=== PATIENT | female | born 2000 | race Two or more races ===

== ENCOUNTER 2024-06-11 22:20 | Observation (INO) | payer MEDICAID, SELFPAY ==
[2024-06-11 22:35] VITALS: BP 117/70; PULSE 93
[2024-06-11 22:36] VITALS: BP 117/70; PULSE 93; RESP 16; RESP 99; TEMP 36.8
[2024-06-11 22:49] VITALS: BMI 36.9
[2024-06-11 23:17] LABS: ROM Kit Lot # 578010271; ROM Swab Mixed By: MARTB3; Rupture of Fetal Membranes Negative (Negative); Swb Mxed in Solvent 1 min? Yes
== END 2024-06-11 23:30 | disposition home or self-care (01) ==
PROVIDERS: Admitting Provider Specialist; Visit Provider Specialist
DX: Z34.83 Encounter for supervision of other normal pregnancy, third trimester (principal); Z3A.36 36 weeks gestation of pregnancy
CPT/HCPCS: 59025; 59899; 84112; G0378

== ENCOUNTER 2024-06-26 20:51 | Observation (INO) | payer MEDICAID, SELFPAY ==
[2024-06-26] VITALS (20 sets, daily range): BP systolic 106–121; BP diastolic 60–62; PULSE 77–100; RESP 18–100; TEMP 36.3; O2SAT 97–99; BMI 37.8
[2024-06-26 21:50] LABS: ROM Kit Lot # 578010271; ROM Swab Mixed By: GONZY; Rupture of Fetal Membranes Negative (Negative); Swb Mxed in Solvent 1 min? Yes
== END 2024-06-26 22:59 | disposition home or self-care (01) ==
LOC: S4SX 22:50 → S4NX 23:18
PROVIDERS: Admitting Provider Specialist; Visit Provider Specialist
DX: O26.893 Other specified pregnancy related conditions, third trimester (principal); Z3A.38 38 weeks gestation of pregnancy; R10.2 Pelvic and perineal pain
CPT/HCPCS: 59025; 59899; 84112

== ENCOUNTER 2024-06-29 17:37 | Inpatient (IN) | payer MEDICAID, SELFPAY ==
[2024-06-29] VITALS (9 sets, daily range): BP systolic 109–122; BP diastolic 60–72; PULSE 74–90; RESP 18; TEMP 36.7–36.9; BMI 37.5
--- NOTE | 2024-06-29 07:50 | ESHP_ITS ---
RE: TONIO YOUNG : 2000 DATE OF ADMISSION: 06/29/2024 HISTORY OF PRESENT ILLNESS: This is a 23-year-old 2, para 0-0-1-0 with intrauterine at 39 weeks on 06/30/2023. She was admitted for induction of labor for macrosomia at term. The patient's care was complicated by a left adnexal cyst measuring 10 x 11 cm that has been stable and unchanged in size throughout her . An US performed today shows 3957g. PAST MEDICAL HISTORY: Left adnexal cyst, BMI 37, scoliosis, iron deficiency anemia, molar . ALLERGIES: No known drug allergies. MEDICATIONS: multivitamin 1 p.o. daily, ferrous sulfate 325 mg one p.o. b.i.d. SOCIAL HISTORY: She denies any alcohol, drug use, or smoking. OBSTETRIC HISTORY: 03/2023, spontaneous AB at 7 weeks gestation with D and C for molar . PAST SURGICAL HISTORY: D and C in 03/2023, spinal fusion at the age of 13. REVIEW OF SYSTEMS: She denies any headache, change in vision, or right upper quadrant pain. She denies any chest pain, palpitations, shortness of breath, or lower extremity pain. She has occasional contractions. She denies any leaking or bleeding. She reports normal movement. PHYSICAL EXAMINATION: VITAL SIGNS: Blood pressure is 115/69, heart rate 88, respirations 18, temperature 98.2, weight 222 pounds. HEENT: Oropharynx and sclerae are clear. LUNGS: Clear to auscultation bilaterally. HEART: Regular rate and rhythm. ABDOMEN: Gravid consistent with estimated weight 9lbs pounds. PELVIC: See RN notes. EXTREMITIES: Nontender. SKIN: No gross rashes or lesions. NEUROLOGIC: No focal deficit. ASSESSMENT AND PLAN: Intrauterine at 39 weeks on 06/30/2023, macrosomia, induction of labor, anticipate spontaneous vaginal delivery. Informed consent was obtained. The patient was made aware of the risks, complications, alternatives, and benefits of operative vaginal delivery and delivery. He agrees with these modes of delivery if indicated. DT: 06:26:09 TT: 07:11:00 Ref: [id number] - TID: [id number] MTDD
[2024-06-29 18:30] LABS: Basophils % (Auto) 0 % (0-2.5); Eosinophils % (Auto) 0 % (0-10); Hematocrit 33.5 % (36.0-46.0); Hemoglobin 10.5 g/dL (12.0-16.0); Immature Granulocytes % (Auto) 0 % (0-0); Immature Granulocytes Auto 0.03 Thou/mm3 (0.00-0.00); Lymphocytes # (Auto) 1.5 Thou/mm3 (1.0-4.8); Lymphocytes % (Auto) 18 % (10-50); Mean Corpuscular HGB Conc 31.3 g/dl (31.0-37.0); Mean Corpuscular Hemoglobin 23.7 pg (25.0-35.0); Mean Corpuscular Volume 76 fL (80-100); Monocytes # (Auto) 0.7 Thou/mm3 (0.0-0.8); Monocytes % (Auto) 8 % (0-12); Neutrophils # (Auto) 6.2 Thou/mm3 (1.8-7.7); Neutrophils % (Auto) 74 % (37-80); Nucleated Red Blood Cell % 0 /100 WBC (0); Platelet Count 209 Thou/mm3 (140-440); RDW Standard Deviation 46.5 fL (36.4-46.3); Red Blood Count 4.43 Miln/mm3 (4.00-5.20); White Blood Count 8.4 Thou/mm3 (3.6-11.0)
[2024-06-29 19:06] LABS: Syphilis Nonreactive (Nonreactive)
--- NOTE | 2024-06-29 19:11 | XR_ITS ---
Examination: Complete OB ultrasound greater than 14 weeks Date and time of exam: June 29, 2024 1943 hours INDICATIONS: Unknown presentation unknown weight Findings: Viable intrauterine single fetus with single amniotic sac presentation cephalic Cardiac motion 143 BPM Placenta fundal grade 3 Umbilical cord insertion 3 vessel seen Amniotic fluid index 14.3 cm spine maternal right Cervix 4.3 cm Right ovary obscured by bowel gas Left ovary 13.8 cm arterial flow, 13 x 10.6 cm left ovarian cyst. Composite estimated gestational age based on BPD, head circumference, abdominal circumference, femur length is 39 weeks 4 days, weight 3956.5 g. Survey of intracranial anatomy, spinal anatomy, abdominal anatomy, four-chamber heart performed with no abnormalities identified. Impression: Viable intrauterine gestation in cephalic presentation Estimated gestational age 39 weeks 4 days Estimated weight 3956.5 g Large left ovarian simple cyst.
[2024-06-29] MEDS: MISOPROSTOL 50 mCg TABLET PO (21:02)
[2024-06-30] VITALS (145 sets, daily range): BP systolic 91–125; BP diastolic 50–78; PULSE 60–96; RESP 18; TEMP 36.7–36.8; O2SAT 91–100
[2024-06-30] MEDS: MISOPROSTOL 50 mCg TABLET PO ×3 (01:06→10:46)
--- NOTE | 2024-06-30 08:43 | PD.LDPN ---
Documentation for date of: 06/30/24 OB Labor Progress Note Pain Control Pain control: tolerating well Assessment and Plan Comments: Taken over care from on-call physician overnight Continue current plan. Oxytocin when Waldrop score is favorable. Continue continuous maternal monitoring. Anticipate vaginal delivery
[2024-06-30] MEDS: OXYTOCIN in NS 30 units 30 UNIT/500 ML BAG IV (16:45)
[2024-06-30] MEDS: RINGERS LACTATED 1000 ML 1,000 ML 100 ML IV (21:23)
[2024-07-01] VITALS (156 sets, daily range): BP systolic 83–147; BP diastolic 46–83; PULSE 61–157; RESP 16–24; TEMP 36.4–37.2; O2SAT 73–100
[2024-07-01] MEDS: fentaNYL CIT INJ 50 mCg/ML AMP 2ML 100 MCG IV (02:25)
--- NOTE | 2024-07-01 08:09 | PD.LDPN ---
Documentation for date of: 07/01/24 OB Labor Progress Note Pain Control Comments: Epidrual Pelvic Exam Dilation (cm): 10 Effacement (%): 100 station: +1 Amniotic membrane status: Ruptured Contractions Contraction frequency: q3m Status status: Category ll Assessment and Plan Pitocin rate (mU/min): 7 Comments: Anticipate Discussed risks of shoulder dystocia with delivery of 3950g fetus and that she has the right to request a C/S at anytime. She is aware that the ultrasound can overestimate or underestimate the weight of her baby and that baby could be 8-10 lbs. Patient desires to attempt a vaginal delivery. She is aware that if a SD is encountered the baby could sustain a permanent or life threatening neurologic injury that could limit movement of the extremities and in extreme cases brain injury and .
[2024-07-01] MEDS: MINERAL OIL 30 ML UDC TOP (08:57)
[2024-07-01] MEDS: BENZO/LANO/ALOE (Dermoplast) 60 GM CAN 1 SPRAY TOP (08:57)
[2024-07-01] MEDS: OXYTOCIN in NS 20 units 20 UNIT/1,000 ML BAG 125 UNIT IV ×2 (08:59→15:46)
--- NOTE | 2024-07-01 09:20 | ESDS_ITS ---
DS: Providers Provider Date of admission: 06/29/24 17:37 Primary care physician: Physician No Primary/Family Admitting Provider: Koko Crystal MD Attending Provider on Admission: Walter Mike MD Attending Provider on DC: Koko Crystal MD Discharging Provider: Koko Crystal MD DS: Diagnosis Problem List Completed Was Problem List Reviewed/Reconciled?: Yes Summary/Hosp Course Brief History: Induction for 39w1d with suspected macrosomia. Cytotec x 4. Pitocin to 7 miu. Epidural. Peripartum Data Delivery Method: Normal Vaginal Delivery Episiotomy Description: None Laceration Description: yes and see Delivery Summary [place] 1: Gender: Male Disposition of : home Time Spent with Patient Time attestation: Total time spent providing and/or coordinating discharge services: Exam Vital Signs Temp Pulse Resp BP Pulse Ox 98.2 F 81 18 110/65 97 07/01/24 07:02 07/01/24 09:17 07/01/24 07:02 07/01/24 09:17 07/01/24 08:42 Discharge Plan Plan Patient Disposition: HOME (Self Care) Patient condition on transfer: Stable Prescriptions/Referrals Prescriptions/Med Rec: New ibuprofen 600 mg tablet 600 mg PO Q6H PRN (Reason: pain) Qty: 30 0RF docusate sodium 100 mg Capsule 100 mg PO QDAY PRN (Reason: Constipation) 30 Days Qty: 30 0RF No Action [id number] 40-1 mg tablet,chewable 1 tab PO DAILY Referrals: Koko Crystal MD [Physician] - No Primary/Family,Physician [Primary Care Provider] - Patient/Caregiver Discharge Instructions Discharge Activity: activity as tolerated Other Discharge Activity Instructions:: Follow up office 6 weeks. Education Materials: After a Vaginal , After Delivery Concerns, Breast Care After , Incision Care After Vaginal , Nutrition While , Understanding Depression, : Caring for Yourself, Feel Healthy After, Hemorrhage Print Language: Surinamese Stand Alone Forms: Missy Award Info., Patient Portal Info Letter, DC from Surgery Discharge Order Discharge Orders: Discharge (Routine); Ordered 07/03/24 Ordered By: Walter Mike Planned Discharge Date 07/02/24
--- NOTE | 2024-07-01 09:22 | PD.LDDELS ---
Data ([place]) Data Hx Section: No : 2 Para: 0 Term: 0 : 0 : 1 Delivery Data ([place]) Labor Data ROM Date: 07/01/24 ROM Time: 01:55 Rupture Type: SROM Amniotic Fluid: Clear Delivery Data EDC: 07/06/24 EDC calculated by:: LMP/early US confirmation Labor Onset Stage 1 Date: 07/01/24 Labor Onset Stage 1 Time: 04:25 Labor Onset Stage 2 Date: 07/01/24 Labor Onset Stage 2 Time: 07:42 Delivery Date: 07/01/24 Delivery Time: 08:43 Gestational age (weeks): 39 Gestational age (days): 2 Placenta Delivery Date: 07/01/24 Placenta Delivery Time: 08:49 Delivered by: Koko Crystal Delivery nurse: Anila Grayson Other staff at delivery: 2nd Nurse Other staff at delivery: Nursery Nurse Other staff at delivery: 2nd Nurse Other staff at delivery: 2nd Nurse Other staff at delivery: Daylin Hernandez Other staff at delivery: Brittany Wood Other staff at delivery: Margarette Casas Other staff at delivery: AstoaCatherine Delivery Method Delivery: Vaginal Delivery Type: Spontaneous Presentation: Vertex Position: OA Anesthesia Type Primary Anesthesia: Epidural Placenta Placenta Delivery: Spontaneous Placenta Cultures Obtained: No Placenta Sent for Examination: No Cord Sample: Cord Blood Obtained Lacerations #1: Perineal: 2nd degree Perineal repair Sutures used for repair: 3.0 Chromic Umbilical Cord Nuchal Cord: None Data ([place]) Data Gender: Male Infant Weight Grams: 3865 1 Minute Total: 8 5 Minute Total: 9
[2024-07-01] MEDS: IBUPROFEN TAB 400 MG TABLET 800 MG PO ×2 (09:32→18:34)
[2024-07-01 13:51] LABS: Basophils % (Auto) 0 % (0-2.5); Eosinophils % (Auto) 0 % (0-10); Hematocrit 31.3 % (36.0-46.0); Hemoglobin 9.9 g/dL (12.0-16.0); Immature Granulocytes % (Auto) 1 % (0-0); Immature Granulocytes Auto 0.06 Thou/mm3 (0.00-0.00); Lymphocytes % (Auto) 8 % (10-50); Mean Corpuscular HGB Conc 31.6 g/dl (31.0-37.0); Mean Corpuscular Hemoglobin 23.6 pg (25.0-35.0); Mean Corpuscular Volume 75 fL (80-100); Monocytes # (Auto) 1.1 Thou/mm3 (0.0-0.8); Monocytes % (Auto) 9 % (0-12); Neutrophils # (Auto) 10.3 Thou/mm3 (1.8-7.7); Neutrophils % (Auto) 83 % (37-80); Nucleated Red Blood Cell % 0 /100 WBC (0); Platelet Count 208 Thou/mm3 (140-440); RDW Standard Deviation 45.6 fL (36.4-46.3); Red Blood Count 4.19 Miln/mm3 (4.00-5.20); White Blood Count 12.5 Thou/mm3 (3.6-11.0)
--- NOTE | 2024-07-01 15:16 | PC.NURSE ---
Bonilla WAGNER called to update RN at bedside with patient, RN called to room due to patient near-syncopal episode in bathroom, patient currently in bed IV has been placed with IV pitocin running wide open, IM pitocin given, charge nurse Rupinder currently doing manual extraction of clots. Orders received to place 2nd IV, type and cross 2 units of blood on hold, give IM methergine, TXA, 1L bolus, Cytotec DC. Bonilla WAGNER will come to bedside
[2024-07-01] MEDS: METHYLERGONOVINE INJ 0.2 MG/ML VIAL IM (15:22)
--- NOTE | 2024-07-01 15:26 | PC.NURSE ---
Geiling DO at bedside, manual extraction of clots performed, several large clots removed. Called for Bakri placement in OR, charge nurse notified
[2024-07-01] MEDS: OXYTOCIN INJ 10 UNIT/ML VIAL IM (15:41)
[2024-07-01] MEDS: MISOPROSTOL 200 mCg TABLET 800 MCG PR (15:44)
[2024-07-01] MEDS: TRANEXAMIC ACID 1,000 MG IVPB 1,000 MG/100 ML BAG 200 MG IV (15:45)
[2024-07-01] MEDS: RINGERS LACTATED 1000 ML 1,000 ML 100 ML IV (15:47)
--- NOTE | 2024-07-01 16:02 | ESPR_ITS ---
Subjective Subjective Interval history: Called to evaluate patient for hemorrhage. Patient was taking a shower and she started having excessive vaginal bleeding. She she got out of the shower and was found to be hypotensive and tachycardic with 800 cc of blood loss. Exam Vital Signs Temp Pulse Resp BP Pulse Ox O2 Del Method 97.5 F 96 16 96/67 97 Room Air 07/01/24 13:33 07/01/24 15:22 07/01/24 13:33 07/01/24 15:22 07/01/24 08:42 07/01/24 13:33 Routine Abdominal Exam Comments: Uterus is atonic Multiple clots evacuated from the uterine cavity Persistent ongoing vaginal bleeding Objective Labs 07/01/24 13:40 Labs: Laboratory Results - last 24 hr 06/29/24 07/01/24 18:07 13:40 WBC 12.5 H D RBC 4.19 Hgb 9.9 L Hct 31.3 L MCV 75 L MCH 23.6 L MCHC 31.6 RDW Std Deviation 45.6 Plt Count 208 Neut % (Auto) 83 H Lymph % (Auto) 8 L [place] % (Auto) 9 Eos % (Auto) 0 Baso % (Auto) 0 Neut # (Auto) 10.3 H Lymph # (Auto) 1.0 [place] # (Auto) 1.1 H Eos # (Auto) 0.0 Baso # (Auto) 0.0 Immature Gran # (Auto) 0.06 H Absolute Nucleated RBC 0.00 Immature Gran % 1 H Nucleated RBC % 0 Crossmatch See Detail Assessment & Plan Problem List (1) hemorrhage: Status: Acute Assessment and plan: Persistent vaginal bleeding despite uterotonic's in the form of Pitocin, Methergine, Cytotec, TXA and Hemabate Emergent exam under anesthesia, uterine curettage and placement of Bakri balloon Type and cross for 2 units of packed red blood cells and transfuse Type and cross for 2 units of fresh frozen plasma (2) Uterine atony, , current hospitalization: Status: Acute Time Spent With Patient Time: Total time spent is greater than 50% in coordination of care (as documented) at patient's floor/unit and/or counseling patient:
--- NOTE | 2024-07-01 16:10 | PC.NURSE ---
late entry,(1445) RN at bedside patient called stating that when she was in the shower she noticed large clots on the floor of the shower and had trickles of blood running down her leg. Upon assessment in bed, fundal massage performed, slightly boggy but firmed with massage. Three medium sized clots expelled, when I pressed on the patient's bladder she stated that she did feel as if she needed to void. I assisted the patient to the bathroom, when she sat on the toilet large clots were expelled into the urine hat along with free glowing blood. patient then reported feeling dizzy and stated I feel like im going to faint . RN pulled emergency button for assistance. team came immediately, blood pressure was taken while patient was sitting noted at 66/53, patient was still alert, given an alcohol pad to smell and coached by RN to keep her eyes open and to focus on my voice. patient was assisted to wheelchair and assisted back to bed, still alert and oriented. BP cycled every 10 minutes. Second fundal massage done, small clots expelled with free flowing blood. Multiple RNs at bedside, hemorrhage cart pulled to the bedside. Two IV started, 18G in right forearm, 20G started in the left forearm. 20 units of pitocin in 1 liter started and opened wide, 10 units of pitocin given in left thigh IM. Dr. Jose Manuel Crystal notified and order given to start TXA, give Cytotec 800mg per rectum and Methergine 0.2 Im. TXA hung and free flowing into left IV, LR started opened free flowing on the right IV. Cytotec 800mg given per rectum, Methergine 0.2 given IM (see MAR). BPs improved SBP over 100. Dr. Crystal and Anesthesia at bedside to consent for Bakri, uterine exploration to be done in the OR. Main OR staff at beside, patient transferred to OR on bed in stable condition, alert and oriented.
--- NOTE | 2024-07-01 17:05 | ESOP_ITS ---
Operative Note - [employer] Procedure Date of procedure: 07/01/24 Procedure Performed: Exam under anesthesia Uterine curettage Placement of intrauterine Bakri balloon Indication: hemorrhage Persistent uterine atony despite uterotonic's Pre-Op diagnosis: hemorrhage Persistent uterine atony despite uterotonic's day #0 status post spontaneous vaginal delivery Post-Op diagnosis: hemorrhage Persistent uterine atony despite uterotonic's day #0 status post spontaneous vaginal delivery Anesthesia type: General Procedure description: After proper informed consent was obtained and the patient made aware of the risk complications alternatives and benefits of the proposed procedure she was taken to the operating room where spinal anesthesia was attempted but after 15 minutes of attempting with no success recommendation was to proceed with general anesthesia. The patient was placed in the supine position on the operating room table. She underwent induction of general anesthesia. She is placed in dorsolithotomy position. She was prepped and draped you sterile fashion. She underwent exam under anesthesia. A bivalve speculum was placed in the vagina. A grasper was used to grasp the anterior lip of the cervix. A banjo curette was then utilized to curette the uterine cavity. No products of conception were obtained. The Bakri balloon was placed in the uterine cavity. The balloon was inflated with 500 cc of normal saline. Her uterus was firm at the umbilicus. There was no bleeding around the balloon. The vagina and perineum were inspected and were intact with no lacerations or disruptions of the prior sutures that were placed to repair the second-degree perineal laceration. She was reversed from general anesthesia in the supine position and transferred to the recovery room in stable condition. I discussed with the patient's family the nature of her condition and the intraoperative findings the expectation for recovery all questions answered. Fluids: crystalloid and blood Specimen: none Implants: Bakri Balloon Estimated blood loss (ml): 400 Findings: Atonic uterus with fundus 2 cm above the umbilicus, mobile and boggy, blood clots in the uterine cavity. No retained products of conception. No cervical or vaginal lacerations. Complications: none Surgical staff PALAK Carrillo CRNA Diagnosis Problem List Completed Was Problem List Reviewed/Reconciled?: Yes
[2024-07-01] MEDS: HYDROcodone/APAP 5/325 TABLET 1 TAB PO (18:34)
[2024-07-01 20:35] LABS: Fibrinogen 419 mg/dL (175-375); Partial Thromboplastin Time 30.1 Seconds (22.0-36.0)
[2024-07-01 20:40] LABS: Alanine Aminotransferase 8 U/L (10-49); Albumin, Serum 2.9 gm/dL (3.5-5.0); Albumin/Globulin Ratio 1.3 (1.2-2.2); Alkaline Phosphatase 145 U/L (46-116); Anion Gap 8 (7-16); Aspartate Amino Transferase 27 U/L (0-34); BUN/Creatinine Ratio 14 Ratio (12-20); Bilirubin,Total 0.5 mg/dL (0.3-1.2); Blood Urea Nitrogen 7 mg/dL (9-23); Calcium 8.2 mg/dL (8.3-10.6); Calcium (Corrected) 9.1 mg/dL (8.5-10.1); Carbon Dioxide 21.6 mMol/L (20.0-31.0); Chloride 111 mMol/L (98-107); Creatinine (Component) 0.5 mg/dL (0.6-1.3); Estimated Creatinine Clearance 209.5 mL/min (>60); Globulin 2.3 gm/dL (2.3-3.5); Glucose 101 mg/dL (74-106); Osmolality,Calculated 279 (275-295); Potassium 3.9 mMol/L (3.4-5.1); Sodium 141 mMol/L (136-145); Total Protein 5.2 gm/dL (5.7-8.2); eGFR > 60 See Note
[2024-07-02] VITALS (16 sets, daily range): BP systolic 95–116; BP diastolic 57–84; PULSE 61–79; RESP 16–22; TEMP 36.6–37.1; O2SAT 96–99
[2024-07-02] MEDS: HYDROcodone/APAP 5/325 TABLET 1 TAB PO (00:22)
[2024-07-02] MEDS: ceFAZolin/D5W 2 GM IV 2 GM/100 ML BAG IV ×3 (00:22→16:13)
[2024-07-02 05:29] LABS: Basophils % (Auto) 0 % (0-2.5); Eosinophils % (Auto) 0 % (0-10); Hematocrit 30.3 % (36.0-46.0); Hemoglobin 9.8 g/dL (12.0-16.0); Immature Granulocytes % (Auto) 1 % (0-0); Immature Granulocytes Auto 0.06 Thou/mm3 (0.00-0.00); Lymphocytes # (Auto) 2.5 Thou/mm3 (1.0-4.8); Lymphocytes % (Auto) 23 % (10-50); Mean Corpuscular HGB Conc 32.3 g/dl (31.0-37.0); Mean Corpuscular Hemoglobin 24.6 pg (25.0-35.0); Mean Corpuscular Volume 76 fL (80-100); Monocytes # (Auto) 0.9 Thou/mm3 (0.0-0.8); Monocytes % (Auto) 8 % (0-12); Neutrophils # (Auto) 7.5 Thou/mm3 (1.8-7.7); Neutrophils % (Auto) 68 % (37-80); Nucleated Red Blood Cell % 0 /100 WBC (0); Platelet Count 156 Thou/mm3 (140-440); RDW Standard Deviation 45.2 fL (36.4-46.3); Red Blood Count 3.99 Miln/mm3 (4.00-5.20)
[2024-07-02] MEDS: OXYTOCIN in NS 20 units 20 UNIT/1,000 ML BAG 125 UNIT IV (06:24)
[2024-07-02] MEDS: HYDROcodone/APAP 5/325 TABLET 2 TAB PO (07:13)
--- NOTE | 2024-07-02 08:17 | PD.LDPPPRG ---
Subjective Subjective Interval history: The patient is a 23-year-old -0-0-1 status post vaginal delivery the morning of 07/01/24. Dr Crystal delivered her. She did well all day until approximately 3:00 in the afternoon when she started hemorrhaging. Dr Crystal was called over took the patient to the OR for an exam under anesthesia, curettage, and placement of a Bakri balloon. The patient was transfused a total of 4 units of packed red blood cells and 2 units FFP. She is on Ancef. She has a Dimas catheter in place. The plan will be to keep the Bakri in until 1629. The patient's pain is controlled, she is tolerating a general diet and resting comfortably in bed this morning. Exam Vital Signs Temp Pulse Resp BP Pulse Ox O2 Del Method O2 Flow Rate 98.1 F 67 22 H 116/77 99 Room Air 6 07/02/24 07:31 07/02/24 07:31 07/02/24 07:31 07/02/24 07:31 07/02/24 07:31 07/02/24 07:31 07/01/24 18:00 Narrative Exam The patient is alert and oriented x 3 in no apparent distress resting comfortably in bed. Father baby is at bedside. Baby is asleep in [place] next to the bed Routine Abdominal Exam Abdominal: Present soft Comments: Fundus enlarged deviated to patient's right side Bakri in place. Bakri draining serosanguineous fluid. Objective Labs 07/02/24 04:45 07/01/24 19:59 Labs: Laboratory Results - last 24 hr 06/29/24 07/01/24 07/01/24 18:07 13:40 19:59 WBC 12.5 H D RBC 4.19 Hgb 9.9 L Hct 31.3 L MCV 75 L MCH 23.6 L MCHC 31.6 RDW Std Deviation 45.6 Plt Count 208 Neut % (Auto) 83 H Lymph % (Auto) 8 L [place] % (Auto) 9 Eos % (Auto) 0 Baso % (Auto) 0 Neut # (Auto) 10.3 H Lymph # (Auto) 1.0 [place] # (Auto) 1.1 H Eos # (Auto) 0.0 Baso # (Auto) 0.0 Immature Gran # (Auto) 0.06 H Absolute Nucleated RBC 0.00 Immature Gran % 1 H Nucleated RBC % 0 PT 11.0 INR 1.0 APTT 30.1 Fibrinogen 419 H Sodium 141 Potassium 3.9 Chloride 111 H Carbon Dioxide 21.6 Anion Gap 8 BUN 7 L Creatinine 0.5 L Estim Creat Clear Calc 209.5 eGFR > 60 BUN/Creatinine Ratio 14 Glucose 101 Calculated Osmolality 279 Calcium 8.2 L Corrected Calcium 9.1 Total Bilirubin 0.5 AST 27 ALT 8 L Alkaline Phosphatase 145 H Total Protein 5.2 L Albumin 2.9 L Globulin 2.3 Albumin/Globulin Ratio 1.3 Blood Type O Positive Antibody Screen NEGATIVE Crossmatch See Detail Blood Bank Wristband ID Yes Blood Bank Comment FFP Ready 07/02/24 04:45 WBC 11.0 RBC 3.99 L Hgb 9.8 L Hct 30.3 L MCV 76 L MCH 24.6 L MCHC 32.3 RDW Std Deviation 45.2 Plt Count 156 D Neut % (Auto) 68 Lymph % (Auto) 23 [place] % (Auto) 8 Eos % (Auto) 0 Baso % (Auto) 0 Neut # (Auto) 7.5 Lymph # (Auto) 2.5 [place] # (Auto) 0.9 H Eos # (Auto) 0.0 Baso # (Auto) 0.0 Immature Gran # (Auto) 0.06 H Absolute Nucleated RBC 0.00 Immature Gran % 1 H Nucleated RBC % 0 PT INR APTT Fibrinogen Sodium Potassium Chloride Carbon Dioxide Anion Gap BUN Creatinine Estim Creat Clear Calc eGFR BUN/Creatinine Ratio Glucose Calculated Osmolality Calcium Corrected Calcium Total Bilirubin AST ALT Alkaline Phosphatase Total Protein Albumin Globulin Albumin/Globulin Ratio Blood Type Antibody Screen Crossmatch Blood Bank Wristband ID Blood Bank Comment Assessment & Plan Problem List (1) hemorrhage: Problem details: Continue uterotonic's. Follow hemoglobin. Status: Acute Assessment and plan: Remove Bakri at 1630. DC Dimas catheter at the same time. Patient to ambulate. Monitor daily CBC. Patient has 2 units of packed red blood cells on hold but hemoglobin is stable at 9.8 today. Blood pressure and pulse are stable. (2) Uterine atony, , current hospitalization: Status: Acute (3) Term delivered: Status: Acute Assessment and plan: Patient is doing well. Encourage breast-feeding. consult as needed. Time Spent With Patient Time: Total time spent is greater than 50% in coordination of care (as documented) at patient's floor/unit and/or counseling patient: Time with patient: less than 15 minutes
[2024-07-02] MEDS: RINGERS LACTATED 1000 ML 1,000 ML 100 ML IV (14:03)
--- NOTE | 2024-07-02 21:38 | ESPR_ITS ---
Subjective Subjective Interval history: Patient resting comfortably in bed. She is tolerating a general diet. Surrounded by multiple family members. Exam Vital Signs Temp Pulse Resp BP Pulse Ox O2 Del Method O2 Flow Rate 98.3 F 72 17 103/69 96 Room Air 6 07/02/24 20:14 07/02/24 20:14 07/02/24 20:14 07/02/24 20:14 07/02/24 20:14 07/02/24 20:14 07/01/24 18:00 Narrative Exam Patient is alert and oriented x 3 no apparent distress Routine Abdominal Exam Abdominal: Present soft Comments: Fundus firm about 4 cm below umbilicus after Bakri removed. Objective Labs 07/02/24 04:45 07/01/24 19:59 Labs: Laboratory Results - last 24 hr 06/29/24 07/02/24 18:07 04:45 WBC 11.0 RBC 3.99 L Hgb 9.8 L Hct 30.3 L MCV 76 L MCH 24.6 L MCHC 32.3 RDW Std Deviation 45.2 Plt Count 156 D Neut % (Auto) 68 Lymph % (Auto) 23 [place] % (Auto) 8 Eos % (Auto) 0 Baso % (Auto) 0 Neut # (Auto) 7.5 Lymph # (Auto) 2.5 [place] # (Auto) 0.9 H Eos # (Auto) 0.0 Baso # (Auto) 0.0 Immature Gran # (Auto) 0.06 H Absolute Nucleated RBC 0.00 Immature Gran % 1 H Nucleated RBC % 0 Blood Type O Positive Antibody Screen NEGATIVE Crossmatch See Detail Blood Bank Wristband ID Yes Blood Bank Comment FFP Ready Assessment & Plan Problem List (1) hemorrhage: Problem details: Continue uterotonics. Follow hemoglobin. Status: Acute (2) Uterine atony, , current hospitalization: Problem details: Bakri and Dimas removed at 2100. Plan to recheck hemoglobin at 6 AM. Ancef discontinued. Status: Acute (3) Term delivered: Status: Acute Time Spent With Patient Time: Total time spent is greater than 50% in coordination of care (as documented) at patient's floor/unit and/or counseling patient: Time with patient: less than 15 minutes
--- NOTE | 2024-07-02 22:00 | PC.NURSE ---
Dr. Krishnamurthy at bedside at 2130 for removal of Bakiri Balloon/ Dimas catheter, POC to saline lock IV and d/c antibiotics. Pt to start ambulating.
[2024-07-02] MEDS: DOCUSATE SOD 100 MG CAPSULE PO (23:28)
[2024-07-03 07:07] LABS: Basophils # (Auto) 0.1 Thou/mm3 (0.0-0.2); Basophils % (Auto) 1 % (0-2.5); Eosinophils # (Auto) 0.1 Thou/mm3 (0.0-0.5); Eosinophils % (Auto) 1 % (0-10); Hematocrit 32.8 % (36.0-46.0); Hemoglobin 10.6 g/dL (12.0-16.0); Immature Granulocytes % (Auto) 0 % (0-0); Immature Granulocytes Auto 0.04 Thou/mm3 (0.00-0.00); Lymphocytes # (Auto) 2.8 Thou/mm3 (1.0-4.8); Lymphocytes % (Auto) 28 % (10-50); Mean Corpuscular HGB Conc 32.3 g/dl (31.0-37.0); Mean Corpuscular Hemoglobin 24.9 pg (25.0-35.0); Mean Corpuscular Volume 77 fL (80-100); Monocytes # (Auto) 0.7 Thou/mm3 (0.0-0.8); Monocytes % (Auto) 7 % (0-12); Neutrophils # (Auto) 6.2 Thou/mm3 (1.8-7.7); Neutrophils % (Auto) 63 % (37-80); Nucleated Red Blood Cell % 0 /100 WBC (0); Platelet Count 189 Thou/mm3 (140-440); Red Blood Count 4.26 Miln/mm3 (4.00-5.20); White Blood Count 9.8 Thou/mm3 (3.6-11.0)
[2024-07-03 07:44] VITALS: BP 110/69; PULSE 82; RESP 18; TEMP 36.8; O2SAT 97
--- NOTE | 2024-07-03 07:50 | PD.LDPPPRG ---
Subjective Subjective Interval history: Delivery type: Patient doing well this morning. No acute complaints. Ambulating, tolerating p.o. and voiding without difficulty. HTN/Pre-Eclampsia screen: No chest pain, shortness of breath, headache, visual changes, epigastric or right upper quadrant pain. Breast-feeding, lochia diminishing. Bowel: Flatus+/ BM+ Exam Vital Signs Temp Pulse Resp BP Pulse Ox O2 Del Method O2 Flow Rate 98.3 F 82 18 110/69 97 Room Air 6 07/03/24 07:44 07/03/24 07:44 07/03/24 07:44 07/03/24 07:44 07/03/24 07:44 07/03/24 07:44 07/01/24 18:00 Constitutional Constitutional: no acute distress Routine HEENT Exam Head: Present normocephalic and atraumatic Eye: Present EOMI and PERRL ENT: Present mucous membranes moist Routine Neck Exam Neck: Present supple and trachea midline Routine Respiratory Exam Respiratory: Present chest non-tender, lungs clear, normal breath sounds and no resp distress Routine Cardiovascular Exam Cardiovascular: Present RRR Routine Abdominal Exam Abdominal: Present soft and normoactive bowel sounds Routine Extremities Exam Extremities: Present full ROM Routine Skin Exam Skin: Present intact, dry and warm Routine Neurological Exam Neurological: Present alert, oriented X3 and CN II-XII intact Routine Psychiatric Exam Psychiatric: Present normal affect and normal thought process Objective Labs 07/03/24 06:10 07/01/24 19:59 Labs: Laboratory Results - last 24 hr 06/29/24 07/03/24 18:07 06:10 WBC 9.8 RBC 4.26 Hgb 10.6 L Hct 32.8 L MCV 77 L MCH 24.9 L MCHC 32.3 RDW Std Deviation 47.0 H Plt Count 189 D Neut % (Auto) 63 Lymph % (Auto) 28 [place] % (Auto) 7 Eos % (Auto) 1 Baso % (Auto) 1 Neut # (Auto) 6.2 Lymph # (Auto) 2.8 [place] # (Auto) 0.7 Eos # (Auto) 0.1 Baso # (Auto) 0.1 Immature Gran # (Auto) 0.04 H Absolute Nucleated RBC 0.00 Immature Gran % 0 Nucleated RBC % 0 Crossmatch See Detail Assessment & Plan Problem List (1) hemorrhage: Status: Acute (2) Uterine atony, , current hospitalization: Status: Acute (3) Term delivered: Status: Acute Assessment and plan: PPD/POD#2 1. Continue routine care 2. Transition to PO meds. 3. Encourage to ambulate/ breast-feed 4. Anticipate discharge home today. Time Spent With Patient Time: Total time spent is greater than 50% in coordination of care (as documented) at patient's floor/unit and/or counseling patient:
--- NOTE | 2024-07-03 07:50 | PD.LDDS ---
DS: Providers Provider Date of admission: 06/29/24 17:37 Primary care physician: Physician No Primary/Family Admitting Provider: Koko Crystal MD Attending Provider on Admission: Walter Mike MD Consults: 07/01/24 09:22 Referral Routine Comment: Attending Provider on DC: Walter Mike MD Discharging Provider: Walter Mike MD DS: Diagnosis Discharge Diagnosis (1) Term delivered: Status: Acute (2) Transfusion of blood during current hospitalisation: Status: Acute (3) hemorrhage: Status: Acute (4) Uterine atony, , current hospitalization: Status: Acute Problem List Completed Was Problem List Reviewed/Reconciled?: Yes Summary/Hosp Course Brief History: Induction for 39w1d with suspected macrosomia. Cytotec x 4. Pitocin to 7 miu. Epidural. Peripartum Data Delivery Method: Normal Vaginal Delivery Episiotomy Description: None Procedures: Procedures Operation Date: 07/01/24 16:05 Actual Procedure Side Surgeon p Dilatation & Curettage bakri balloon placement Koko Crystal MD Time Spent with Patient Time attestation: Total time spent providing and/or coordinating discharge services: Exam Vital Signs Temp Pulse Resp BP Pulse Ox O2 Del Method O2 Flow Rate 98.3 F 82 18 110/69 97 Room Air 6 07/03/24 07:44 07/03/24 07:44 07/03/24 07:44 07/03/24 07:44 07/03/24 07:44 07/03/24 07:44 07/01/24 18:00 Discharge Plan Plan Patient Disposition: HOME (Self Care) Patient condition on transfer: Stable Prescriptions/Referrals Prescriptions/Med Rec: New ibuprofen 600 mg tablet 600 mg PO Q6H PRN (Reason: pain) Qty: 30 0RF No Action [id number] 40-1 mg tablet,chewable 1 tab PO DAILY Referrals: No Primary/Family,Physician [Primary Care Provider] - Koko Crystal MD [Physician] - Patient/Caregiver Discharge Instructions Discharge Activity: activity as tolerated Other Discharge Activity Instructions:: Follow up office 6 weeks. Education Materials: After a Vaginal , After Delivery Concerns, Breast Care After , Incision Care After Vaginal , Nutrition While , Understanding Depression, : Caring for Yourself, Feel Healthy After Print Language: Bangladeshi Stand Alone Forms: Missy Becerril Info., Patient Portal Info Letter, DC from Surgery Planned Discharge Date 07/03/24
--- NOTE | 2024-07-03 13:24 | PC.NURSE ---
Patient discharged home with significant other. Patient educated on discharge instructions including reasons to return. Patient instructed to make follow up appointments for self and . Patient verbalizes understanding all questions answered and encouraged.
== END 2024-07-03 13:27 | disposition home or self-care (01) | DRG 542 ==
LOC: S4SX 07-01 11:02 → S4NX 07-01 13:24
PROVIDERS: Obstetrics & Gynecology; Admitting Provider Specialist; Visit Provider Obstetrics & Gynecology
PROC: 10E0XZZ Delivery of Products of Conception, External Approach (ICD-10-PCS; CPT 58120; principal; 2024-07-01 16:05)
DX: O36.63X0 Maternal care for excessive fetal growth, third trimester, not applicable or unspecified (principal); Z3A.39 39 weeks gestation of pregnancy; O72.1 Other immediate postpartum hemorrhage; Z37.0 Single live birth; O70.1 Second degree perineal laceration during delivery
CPT/HCPCS: 36415; 59409; 76805; 80053; 85025; 85384; 85610; 85730; 86780; 86850; 86900; 86901; 86923; 86927; 94762; J0689; J2210; J2250; J2274; J2371; J2590; J2704; J2795; J3010; J3490; J7120; P9016; P9060; S0191; A9270; J2270

== ENCOUNTER 2024-07-07 00:07 | Emergency (ER) | payer MEDICAID, SELFPAY ==
[2024-07-07 00:08] VITALS: BMI 34.1
[2024-07-07 01:18] VITALS: BP 112/60; PULSE 86; RESP 18; TEMP 37.2; O2SAT 98
[2024-07-07 02:10] LABS: Collection Type, Urine Clean Catch
[2024-07-07 02:15] LABS: Bilirubin,Urine Negative (Negative); Blood,Urine 3+ (Negative); Clarity,Urine Clear (Clear/Hazy); Color,Urine Lt-Brown (Lt Yel-Yel); Glucose, Urine Negative (Negative); Ketones,Urine Negative (Negative); Leukocyte Esterase,Urine Positive (Negative); Nitrite,Urine Negative (Negative); PH,Urine 6.5 (5.0-7.0); Protein,Urine Trace (Neg - Trace); RBC,Urine 462 /hpf (0-3); Specific Gravity,Urine 1.012 (1.001-1.035); Squamous Epithelial Cell,Urine 2 /hpf (0-5); Urobilinogen,Urine Negative mg/dL (0.0-1.0); WBC,Urine 45 /hpf (0-5)
[2024-07-07 02:19] LABS: Basophils % (Auto) 0 % (0-2.5); Eosinophils # (Auto) 0.2 Thou/mm3 (0.0-0.5); Eosinophils % (Auto) 3 % (0-10); Hematocrit 37.7 % (36.0-46.0); Hemoglobin 11.9 g/dL (12.0-16.0); Immature Granulocytes % (Auto) 1 % (0-0); Immature Granulocytes Auto 0.04 Thou/mm3 (0.00-0.00); Lymphocytes # (Auto) 2.3 Thou/mm3 (1.0-4.8); Lymphocytes % (Auto) 30 % (10-50); Mean Corpuscular HGB Conc 31.6 g/dl (31.0-37.0); Mean Corpuscular Hemoglobin 24.9 pg (25.0-35.0); Mean Corpuscular Volume 79 fL (80-100); Monocytes # (Auto) 0.5 Thou/mm3 (0.0-0.8); Monocytes % (Auto) 7 % (0-12); Neutrophils # (Auto) 4.6 Thou/mm3 (1.8-7.7); Neutrophils % (Auto) 59 % (37-80); Nucleated Red Blood Cell % 0 /100 WBC (0); Platelet Count 283 Thou/mm3 (140-440); Red Blood Count 4.77 Miln/mm3 (4.00-5.20); White Blood Count 7.8 Thou/mm3 (3.6-11.0)
--- NOTE | 2024-07-07 02:24 | PD.EDVAGBL ---
ED OB Contraction Preg RMI/HPI General Chief complaint: Vaginal Bleeding Stated complaint: VAGINAL BLEEDING, GAVE ON 07/01/24 Time Seen by Provider: 07/07/24 01:22 Source: patient Arrival date/time: 07/07/24 00:07 Mode of arrival: ambulatory Limitations: no limitations RME / HPI RME / HPI Narrative: 23-year-old female presents for evaluation of vaginal bleeding x 1 day. Patient reports vaginal delivery on 07/01/2024 which was complicated by hemorrhage requiring uterine balloon tamponade and x 2 units of blood and 2 units plasma. She reports being discharged with plan for outpatient follow-up and initially was feeling well but developed scant vaginal spotting x 3 days ago. She reports worsening suprapubic cramping and endorses weakness, dizziness, large blood clots (egg size). Denies fever, chills, chest pain, shortness of breath, nausea, vomiting. A1 Complaint: vaginal bleeding Quality: cramping Relieving factors: none Associated symptoms: vaginal bleeding and weakness Vaginal bleeding: clots Related Data Home Medications ?Medication ?Instructions ?Recorded ?Confirmed [id number] 40 mg-1 1 tab PO DAILY supplement 06/26/24 06/29/24 mg chewable tablet Previous Rx's ?Medication ?Instructions ?Recorded ibuprofen 600 mg tablet 600 mg PO Q6H PRN pain #30 tabs 07/01/24 docusate sodium 100 mg capsule 100 mg PO QDAY PRN Constipation 30 07/03/24 days #30 caps Allergies Allergy/AdvReac Type Severity Reaction Status Date / Time No Known Allergies Allergy Verified 07/07/24 00:08 Review of Systems Constitutional Constitutional: Denies body ache(s), Denies chills, Denies fever(s), Denies headache(s), Denies night sweats and Denies weakness ENT Ears, Nose, Mouth, and Throat: Denies dizziness, Denies headache(s) and Denies neck pain Cardiovascular Cardiovascular: Denies chest pain, Denies dyspnea, Denies irregular heart rhythm and Denies leg edema Respiratory Respiratory: Denies cough, Denies dyspnea and Denies wheezing Gastrointestinal Gastrointestinal: Reports abdominal pain, Denies change in stool character and Denies diarrhea Genitourinary Genitourinary: Reports abnormal vaginal bleeding, Denies dysuria and Reports hematuria Musculoskeletal Musculoskeletal: Denies back pain and Denies neck pain Integumentary/Breasts Skin/Breast: Denies change in pigmentation and Denies rash Neurologic Neurologic: Denies dizziness, Denies headache(s) and Denies weakness Allergic/Immunologic Allergic/Immunologic: Denies wheezing Past Medical History Past Medical History NEUROLOGIC: Negative Meningitis, Seizures, Guillain-Umpire Syndrome, Migraine or Head Trauma CARDIAC: Negative Cardiac Disorders, Heart Murmur, Hypercholesterolemia, Congestive Heart Failure, Edema, Hypertension or Hypotension RESPIRATORY: Negative Chronic Obstructive Pulmonary Disease (COPD), Asthma, Bronchitis, Tuberculosis or Sleep Apnea GASTROINTESTINAL: Negative Gastrointestinal Disorders, Hepatitis, Gall Bladder Disease, Gastrointestinal Bleed, Hemorrhoids or Gastroesophageal Reflux Disease GENITOURINARY: Negative Genitourinary Disorders, Renal Disease or Kidney Stones REPRODUCTIVE: Positive Previous Pregnancies (X1 03/2023-w SAB); Negative Endometriosis, Genital Herpes, Gonorrhea, Pelvic Inflammatory Disease or Syphilis MUSCULOSKELETAL: Positive Musculoskeletal Disorders and Scoliosis (as a child-Sx at 13); Negative Arthritis, Carpal Tunnel Syndrome or Fractures ENT: Negative Head Trauma ENDOCRINE: Negative Endocrine Disorders, Diabetes Mellitus Type 1, Diabetes Mellitus Type 2, Hypothyroidism or Parathyroid Disease HEMATOLOGIC: Positive Blood Disorders and Anemia PSYCHO/SOCIAL: Negative Recreational Drug Use, Bipolar Disorder, Depression, Anxiety, Behavior Problems, Self-Mutilation, Attention Deficit Disorder, Attention Deficit Hyperactivity Disorder, Depression, Post Traumatic Stress Disorder or Eating Disorder OTHER HISTORY: Positive Hospitalization (Spinal fusion at 13); Negative Autoimmune Disease, Down Syndrome, Developmental Delay, Shingles, Falls, Blood Transfusions, Blood Transfusion Reaction, Anesthesia Reactions, Organ Transplant, Chemotherapy, Radiation Therapy, Hyperbaric Therapy, MRSA, VRSA, Vancomycin-Resistant Enterococci, Human Immunodeficiency Virus (HIV), Chicken Pox, Measles, Mumps, Rubella (Khmer Measles), Pertussis, Clostridium Difficile or Cancer Family History FAMILY HISTORY: Positive Family Surgery (Thyroid removed); Negative Family Psychiatric Problems, Family Respiratory Disorders, Family Cardiac Disorders, Family Gastrointestinal Problems, Family Cancer or Family Anesthesia Reaction Surgical History SURGICAL: Positive Joint Replacement; Negative Cardiac Surgery, Open Heart Surgery, Coronary Artery Bypass Graft, Valve Replacement, Vascular Surgery, Coronary Stent, Cardiac Catheterization, Pacemaker, Angiogram, Auto Implanted Cardiovert Defib, Carotid Endarterectomy, Endocrine Surgery, Thyroidectomy, Ear Surgery, Abdominal Surgery, Nephrectomy, Neurologic Surgery, Brain Shunt, Mastectomy, Lumpectomy, Hysterectomy, Tubal Ligation, Section, Vasectomy or Organ Transplant Social History SMOKING STATUS: Never smoker ED Exam General Limitations: Present no limitations General appearance: Present alert and in no apparent distress Head Head exam: Present atraumatic and normocephalic Eye Eye exam: Present normal appearance and EOMI ENT ENT exam: Present normal oropharynx and mucous membranes moist Neck Neck exam: Present normal inspection and full ROM Chest Chest inspection: Present normal inspection and symmetric chest wall rise Respiratory Respiratory exam: Present normal lung sounds bilaterally; Absent respiratory distress or wheezes Cardiovascular Cardiovascular exam: Present regular rate and +S1 Abdominal Exam Abdominal exam: Present soft; Absent distention, tenderness or guarding Extremities Exam Extremities exam: Present normal inspection and full ROM Back Exam Back exam: Present normal inspection and full ROM; Absent CVA tenderness (R) or CVA tenderness (L) Neurological Exam Neurological exam: Present alert Psychiatric Psychiatric exam: Present normal affect Skin Skin exam: Present warm, dry and normal color Course Quality Measures none Orders Category Date Time Status Insert IV NOW Care 07/07/24 01:35 Active US transvaginal Stat Exams 07/07/24 03:10 Taken CBC Stat Lab 07/07/24 01:50 Completed PT [Prothrombin Time with INR] Stat Lab 07/07/24 01:50 Completed PTT [Partial Thromboplastin Time] Stat Lab 07/07/24 01:50 Completed Type and Screen Stat Lab 07/07/24 01:50 Completed UA, C/S IF [Urinalysis, C/S if Indicated] Stat Lab 07/07/24 01:51 Completed Urine Culture Stat Lab 07/07/24 01:51 Received Vital Signs Vital signs: Vital Signs Temperature 99.0 F 07/07/24 01:18 Pulse Rate 86 07/07/24 01:18 Respiratory Rate 18 07/07/24 01:18 Blood Pressure 112/60 07/07/24 01:18 Pulse Oximetry (%) 98 07/07/24 01:18 Oxygen Delivery Method Room Air 07/07/24 01:18 Pulse ox 98% on room air, within normal limits. Vaginal Bleeding Patient data External records reviewed:: [facility] previous records Clinical information provided by:: patient and spouse Social determinants that could affect healthcare access:: none Patient has the following chronic illnesses:: None reported. How is presenting disease/condition affected by chronic disease/condition?: no chronic disease Evaluation data The following diagnostics were reviewed and interpreted by me:: lab results and radiology exam(s) Medications / Prescriptions Medications or Prescriptions considered but not ordered:: Considered not ordered. Medication administrations:: Considered not ordered. Consultations Consultation(s) initiated? (list below): Yes Consultation #1 (Physician, Specialty, Details): Dr. Mckenzie (OB public relations analyst). Very kindly recommended transvaginal US for possible placental avulsion. Discussed lab results with Dr. Mckenzie and she recommends outpatient follow-up if no prodcuts of conception seen on US today. Time: 05:09 Consultation #2 (Physician, Specialty, Details): Spoke with Dr. Mckenzie regarding US results. She recommends Methergine 0.2mg q6hrs x4 doses and outpatient follow-up. Diagnosis Vaginal Bleeding Differential Diagnosis: dysfunctional uterine bleeding and other (Retained products of conception. Placental avulsion.) Discharge Plan Prescriptions/Referrals Prescriptions/Med Rec: No Action ibuprofen 600 mg tablet 600 mg PO Q6H PRN (Reason: pain) Qty: 30 0RF docusate sodium 100 mg Capsule 100 mg PO QDAY PRN (Reason: Constipation) 30 Days Qty: 30 0RF [id number]-[id number]-YT 40-1 mg tablet,chewable 1 tab PO DAILY Patient/Caregiver Discharge Instructions Print Language: Argentine
[2024-07-07 02:39] LABS: Culture Indicated,Urine Yes
[2024-07-07 02:52] LABS: INR 0.9 (0.9-1.3); Partial Thromboplastin Time 28.5 Seconds (22.0-36.0); Prothrombin Time 10.1 Seconds (9.0-12.2)
[2024-07-07 03:03] VITALS: BP 106/70; PULSE 73; RESP 17; TEMP 36.7; O2SAT 98
--- NOTE | 2024-07-07 03:10 | XR_ITS ---
Examination: Transvaginal ultrasound of the pelvis, complete Technique: Transvaginal sonographic images pelvis performed using scott scale imaging Exam date and time: July 07, 2024 0405 hrs. Indications: Vaginal bleeding today, 6 days Findings: Uterus 15.6 cm endometrial stripe 4.0 cm Focal hypoechoic area in the lower uterine segment cervix 2.5 x 2.9 x 3.6 cm Ovaries obscured by bowel gas Impression: Positive for retained products of conception
--- NOTE | 2024-07-07 04:56 | PRELIM_ITS ---
Pelvic ultrasound (transvaginal). July 07, 2024 0405 hours Clinical history: large blood clots Technique: Real-time, grayscale, transvaginal pelvic ultrasound was performed using Duplex scanning including arterial inflow, venous outflow, color and spectral Doppler. Findings: The uterus is enlarged measuring 15.6x8.8x9.2cm due to 6 days .Hyperechoic structure is seen in the lower uterine segment/cervical region, measuring 2.9x2.1x3.6cm The endometrium is unremarkable and measures 4cm. The right ovary is not visualized due to enlarged uterus. The left ovary is not visualized due to enlarged uterus. There is no free fluid on the submitted images. Impression: Hyperechoic structure in the lower uterine segment/cervical region could potentially represent retained products of conception (RPOC) or blood clots. Recommend clinical correlation and follow-up. Report Electronically Signed By: Laureano Hilario 07/07/2024 4:56:43 AM [EST]
--- NOTE | 2024-07-07 05:18 | PD.GYNCONS ---
COMMERCIAL ANNOUNCER HPI Consult Narrative cc:: cc: Meds Home Medications and Allergies Home Medications ?Medication ?Instructions ?Recorded ?Confirmed ?Type hylgsrp-pqic-LI 40 mg-1 1 tab PO DAILY supplement 06/26/24 06/29/24 History mg chewable tablet Allergies Allergy/AdvReac Type Severity Reaction Status Date / Time No Known Allergies Allergy Verified 07/07/24 00:08 Exam - COMMERCIAL ANNOUNCER Vital Signs Temp Pulse Resp BP Pulse Ox O2 Del Method 98.1 F 73 17 106/70 98 Room Air 07/07/24 03:03 07/07/24 03:03 07/07/24 03:03 07/07/24 03:03 07/07/24 03:03 07/07/24 03:03 COMMERCIAL ANNOUNCER - Results Labs 07/07/24 01:50 Labs: Short CBC 07/07/24 Range/Units 01:50 WBC 7.8 (3.6-11.0) Thou/mm3 Hgb 11.9 L (12.0-16.0) g/dL Hct 37.7 (36.0-46.0) % Plt Count 283 D (140-440) Thou/mm3 Urine 07/07/24 Range/Units 01:51 Urine Color Lt-Brown A (Lt Yel-Yel) Urine Clarity Clear (Clear/Hazy) Urine pH 6.5 (5.0-7.0) Ur Specific Josephine 1.012 (1.001-1.035) Urine Protein Trace (Neg - Trace) Urine Glucose (UA) Negative (Negative) Assessment and Plan Assessment and plan (1) bleeding: Status: Acute Assessment and plan: I was called regarding recommendations for Maria Luz's workup and treatment. She is a 23yo [id number] s/p on 07/01 that was complicated by subsequent PPH related to uterine atony that was treated with D&C and uterotonics. After going home, her bleeding had been normal until it increased yesterday and she passed some clots. Hgb 11.9 which has increased from 10.6. Normal vitals. I requested for pelvic ultrasound to be ordered which showed suspected clot near the cervix, no obvious retained POCs. I recommended for her to be discharged home with methergine series (0.2mg PO Q6hr for 4 doses), and follow up with Dr. Crystal in the clinic this week. Her bleeding is likely related to placental site involution, a normal physiologic occurrence . I requested for her to be given return precautions for worsening bleeding. Dr. Mckenzie (1) bleeding Qualifiers: hemorrhage type: unspecified Qualified Code(s): O72.1 - Other immediate hemorrhage
[2024-07-07 05:45] VITALS: BP 106/73; PULSE 73; RESP 19; TEMP 36.8; O2SAT 99
== END 2024-07-07 05:55 | disposition home or self-care (01) ==
LOC: SERX 05:46
PROVIDERS: Physician Assistant; Emergency Provider Emergency Medicine
DX: O72.1 Other immediate postpartum hemorrhage (principal)
CPT/HCPCS: 36415; 76830; 81001; 85025; 85610; 85730; 86850; 86900; 86901; 87086; 99284

== ENCOUNTER 2024-08-18 07:32 | Day surgery (SDC) | payer MEDICAID, SELFPAY ==
--- NOTE | 2024-08-14 18:00 | ESHP_ITS ---
RE: TONIO YOUNG : 2000 DATE OF ADMISSION: 08/18/2024 HISTORY OF PRESENT ILLNESS: This is a 23-year-old 3 para 2-0-1-2 with a left adnexal cyst that she has had for several months and was noted just prior to her most recent and has not changed in size throughout the . She recently delivered on 06/26/2024 and her delivery was complicated by hemorrhage that required uterine curettage and placement of Bakri balloon. She has had some irregular bleeding since the delivery. Ultrasound confirms that there is some endometrial thickening, but no retained products of conception and that the left adnexal cyst persists at a measurement of 10 x 11 cm. The patient presents for surgical removal of the left ovarian cyst and dilatation and curettage of the uterus. PAST MEDICAL HISTORY: Scoliosis, molar , iron deficiency anemia, and hemorrhage due to uterine atony. ALLERGIES: NO KNOWN DRUG ALLERGIES. MEDICATIONS: None. SOCIAL HISTORY: She denies any alcohol or drug use or smoking. OBSTETRIC HISTORY: 03/2023, D and C for molar and 07/01/2024, 39-week normal vaginal delivery, male , 3865 g or 8 pounds 9 ounces, complicated by hemorrhage requiring placement of Bakri balloon. PAST SURGICAL HISTORY: Placement of intrauterine Bakri balloon on 07/01/2024 and spinal fusion at age 13 due to scoliosis. REVIEW OF SYSTEMS: She denies any chest pain, palpitations, cough, fever, shortness of breath or lower extremity pain. PHYSICAL EXAMINATION: VITAL SIGNS: Blood pressure 122/74, heart rate 88, respirations 18, and temperature 98.6. HEENT: Oropharynx and sclerae are clear. LUNGS: Clear to auscultation bilaterally. HEART: Regular rate and rhythm. ABDOMEN: Nontender. No scars noted. EXTREMITIES: Nontender. SKIN: No gross rashes or lesions. NEUROLOGIC: No focal deficits. ASSESSMENT: Left adnexal mass and abnormal uterine bleeding. PLAN: Diagnostic laparoscopy, left ovarian cystectomy, possible laparotomy, and fractional dilatation and curettage. Informed consent was obtained. The patient was made aware of the risks, complications, alternatives, and benefits of the proposed procedure and she agrees. She is aware of the risk of injury to bowel or bladder, uterus, ureters, adjacent organs, pulmonary embolism, deep vein thrombosis, injury to the vessels of the abdominal wall, hematoma, abscess, wound infection, wound dehiscence, pelvic infection, reoperation to repair injury to internal organs, anesthesia complications, the possibility that laparotomy needs to be performed to complete the procedure or control bleeding, and the possibility that procedure is not able to be completed due to severe adhesions or technical difficulties. DT: 16:51:30 TT: 17:59:00 Ref: [id number] - TID: [id number]
[2024-08-17 09:25] VITALS: BMI 35.9
[2024-08-17 10:14] LABS: Basophils % (Auto) 0 % (0-2.5); Eosinophils # (Auto) 0.1 Thou/mm3 (0.0-0.5); Eosinophils % (Auto) 1 % (0-10); Hematocrit 34.6 % (36.0-46.0); Hemoglobin 11.1 g/dL (12.0-16.0); Immature Granulocytes % (Auto) 0 % (0-0); Immature Granulocytes Auto 0.01 Thou/mm3 (0.00-0.00); Lymphocytes # (Auto) 2.2 Thou/mm3 (1.0-4.8); Lymphocytes % (Auto) 29 % (10-50); Mean Corpuscular HGB Conc 32.1 g/dl (31.0-37.0); Mean Corpuscular Volume 81 fL (80-100); Monocytes # (Auto) 0.6 Thou/mm3 (0.0-0.8); Monocytes % (Auto) 8 % (0-12); Neutrophils # (Auto) 4.5 Thou/mm3 (1.8-7.7); Neutrophils % (Auto) 61 % (37-80); Nucleated Red Blood Cell % 0 /100 WBC (0); Platelet Count 261 Thou/mm3 (140-440); RDW Standard Deviation 51.3 fL (36.4-46.3); Red Blood Count 4.27 Miln/mm3 (4.00-5.20); White Blood Count 7.3 Thou/mm3 (3.6-11.0)
[2024-08-17 10:27] LABS: INR 0.9 (0.9-1.3); Partial Thromboplastin Time 28.4 Seconds (22.0-36.0); Prothrombin Time 10.4 Seconds (9.0-12.2)
[2024-08-17 11:00] LABS: Alanine Aminotransferase 11 U/L (10-49); Albumin, Serum 4.4 gm/dL (3.5-5.0); Albumin/Globulin Ratio 1.8 (1.2-2.2); Alkaline Phosphatase 82 U/L (46-116); Anion Gap 8 (7-16); Aspartate Amino Transferase 16 U/L (0-34); BUN/Creatinine Ratio 13 Ratio (12-20); Beta HCG,Quantitative 1 mIU/mL (<5.0); Bilirubin,Total 0.2 mg/dL (0.3-1.2); Blood Urea Nitrogen 8 mg/dL (9-23); Calcium 9.3 mg/dL (8.3-10.6); Calcium (Corrected) 9.3 mg/dL (8.5-10.1); Carbon Dioxide 27.7 mMol/L (20.0-31.0); Chloride 105 mMol/L (98-107); Creatinine (Component) 0.6 mg/dL (0.6-1.3); Estimated Creatinine Clearance 170.4 mL/min (>60); Globulin 2.5 gm/dL (2.3-3.5); Glucose 96 mg/dL (74-106); Osmolality,Calculated 279 (275-295); Potassium 4.2 mMol/L (3.4-5.1); Sodium 141 mMol/L (136-145); Total Protein 6.9 gm/dL (5.7-8.2); eGFR > 60 See Note
[2024-08-18] VITALS (9 sets, daily range): BP systolic 101–120; BP diastolic 58–71; PULSE 79–121; RESP 13–20; TEMP 36.3–36.6; O2SAT 97–100; BMI 35.2
--- NOTE | 2024-08-18 09:20 | CHAP ---
Visited briefly with patient and friend and had prayer.
--- NOTE | 2024-08-18 12:21 | SUR.PHASEI ---
1221: Pt. AAOx4, vitals stable, breathing unlabored, no complaint of pain or nausea, peripad in place CDI, x3 dermabond sites to ABD CDI, no active bleed noted, report received from Rolly BELTRE and Alysha LAU.
[2024-08-18] MEDS: METOCLOPRAMIDE INJ 5 MG/ML VIAL 2 ML 10 MG IVP (12:57)
[2024-08-18] MEDS: ONDANSETRON INJ 2 MG/ML INJ 2 ML 4 MG IV (13:19)
--- NOTE | 2024-08-18 13:40 | SUR.PHASEII ---
1340: Pt. AAOx4, vitals stable, breathing unlabored, no complaint of pain or nausea, peripad in place CDI, x3 dermabond sites to ABD CDI, no active bleed noted, pt. tolerated sips of water well, pt. ambulated to wheelchair with steady gait and no assist, no complications. Gave discharge instructions to the pt. and her ride, both verbalized understanding and had no further questions. Pt. left with all personal belongings.
--- NOTE | 2024-08-19 07:11 | ESOP_ITS ---
RE: TONIO YOUNG : 2000 DATE OF OPERATION: 08/18/2024 PREOPERATIVE DIAGNOSES: Left adnexal mass and abnormal uterine bleeding. POSTOPERATIVE DIAGNOSES: Left adnexal mass and abnormal uterine bleeding. PROCEDURES PERFORMED: Diagnostic laparoscopy, left adnexal cystectomy and fractional dilatation and curettage. SURGEON: Koko Crystal DO. NOTE SPECIALIST: PALAK Murillo. ANESTHESIA: General. ANESTHESIOLOGIST: Rolly Beaver CRNA. ESTIMATED BLOOD LOSS: 20 mL. COMPLICATIONS: None. COUNTS: Correct. PATHOLOGY: Left adnexal cyst, endocervical curettings and endometrial curettings. FINDINGS: An 11 x 13 cm left adnexal cyst adherent to the left fallopian tube and left ovary. Normal-appearing uterus, right fallopian tube, and right ovary. No evidence of endometriosis. No pelvic adhesions. Cyst contained serous fluid. DESCRIPTION OF PROCEDURE: After appropriate informed consent was obtained and the patient was made aware of the risks, complications, alternatives, and benefits of the proposed procedure, she was taken to the operating room where she underwent induction of general anesthesia. She was placed in the dorsal lithotomy position. She was prepped and draped in the usual sterile fashion. A timeout was performed and a bivalve speculum was placed in the vagina. An acorn uterine manipulator was placed. Speculum was then removed. Attention was then turned to the abdomen where the physician regowned and gloved. A 5-mm incision was made in the umbilical fold. With tenting up of the abdomen, a Veress needle was inserted, saline confirmed intra-abdominal placement and artificial pneumoperitoneum was created to 12 mmHg. The Veress needle was then removed and the 5-mm trocar was inserted. With tenting up of the abdomen, laparoscope connected to video camera was then utilized to visualize the pelvis and the above findings noted. A second incision was made in the midline 2 cm above the symphysis pubis. Through this 10-mm incision, a 10-mm trocar was inserted. Under direct visualization of the laparoscope, attention was then turned to the left lower quadrant where a 5-mm incision was made. Through this 5-mm incision, a 5-mm trocar was inserted under direct visualization of the laparoscope. The left fallopian tube was adherent to the left adnexal cyst. Therefore, using the [place] gut grasper and the 1136 Harmonic scalpel, the fallopian tube was freed adherence to the cyst from the mid ampullary segment on the left, taken to the fimbriated end and then followed backwards through to the interstitial portion of the fallopian tube. Once the fallopian tube was freed from the cyst, then using the harmonic scalpel, the portion of the cyst adherent to the left ovary was removed using the Harmonic scalpel. Hemostasis was achieved. The cyst was then deflated and using the C suction digestion operator, the cyst was deflated and it was placed in Endopouch and removed through the suprapubic incision without difficulty complete and intact. Attention was then turned to the fascia in the suprapubic region, which was closed with Osito-Wright needle and the fascia was closed. The incisions were closed with 4-0 Monocryl and covered with Dermabond and infiltrated with Marcaine 0.5% with epinephrine. Attention was then turned to the vagina where the acorn manipulator was then removed and uterine curettage was performed and moderate amount of endometrial tissue was obtained. The endocervix was curetted before that and specimen sent to pathology. There was no bleeding at the end of the procedure. The patient was reversed from general anesthesia in supine position and transferred to recovery room in stable condition. She tolerated the procedure well. Counts were correct. I discussed with the patient's the nature of her condition, intraoperative findings, and expectation for recovery. All questions answered. DT: 12:29:24 TT: 17:35:00 Ref: [id number] - TID: [id number]
== END 2024-08-18 13:40 | disposition home or self-care (01) ==
PROVIDERS: Referring Provider Specialist; Visit Provider Specialist
PROC: (CPT 49320; principal; 2024-08-18 09:30)
PROC: (CPT 58120; 2024-08-18 09:30)
DX: N83.202 Unspecified ovarian cyst, left side (principal)
CPT/HCPCS: 58661; 36415; 80053; 84702; 85025; 85610; 85730; 86850; 86900; 86901; A4217; A4649; J0131; J0690; J1171; J1885; J2250; J2371; J2405; J2704; J2765; J3010; J3490

== ENCOUNTER 2025-03-24 13:37 | Emergency (ER) | payer MEDICAID, SELFPAY ==
[2025-03-24 13:41] VITALS: BP 116/74; PULSE 75; RESP 18; TEMP 36.9; O2SAT 99; BMI 36.6
--- NOTE | 2025-03-24 13:47 | PD.EDDENTL ---
ED Dental RME/HPI General Chief complaint: Dental/Oral/Throat Stated complaint: WHITE PATCH ON L) SIDE OF TONGUE Time Seen by Provider: 03/24/25 13:41 Arrival date/time: 03/24/25 13:37 24-year-old female presents to the emergency department of complaints of left tongue lesion. Patient reports she noticed it about 1 week ago Limitations: no limitations Related Data Home Medications ?Medication ?Instructions ?Recorded ?Confirmed No Known Home Medications 08/17/24 08/17/24 Allergies Allergy/AdvReac Type Severity Reaction Status Date / Time No Known Allergies Allergy Verified 03/24/25 13:40 Review of Systems Review of Systems Systems Reviewed: All systems reviewed, normal except as documented Constitutional Constitutional: Reports system reviewed and no additional complaints, except as documented, Denies fever(s) and Denies headache(s) Eyes Eyes: Reports system reviewed and no additional complaints, except as documented and Denies blurry vision ENT Ears, Nose, Mouth, and Throat: Reports system reviewed and no additional complaints, except as documented, Denies headache(s), Denies nasal congestion, Denies nasal discharge and Reports other (Small sore tongue) Cardiovascular Cardiovascular: Reports system reviewed and no additional complaints, except as documented, Denies chest pain and Denies dyspnea Respiratory Respiratory: Reports system reviewed and no additional complaints, except as documented, Denies chest congestion, Denies cough and Denies dyspnea Gastrointestinal Gastrointestinal: Reports system reviewed and no additional complaints, except as documented and Denies abdominal pain Integumentary/Breasts Skin/Breast: Reports system reviewed and no additional complaints, except as documented and Denies rash Neurologic Neurologic: Reports system reviewed and no additional complaints, except as documented, Reports as per HPI and Denies headache(s) Past Medical History Past Medical History NEUROLOGIC: Negative Neurological Disorders, Meningitis, Seizures, Guillain-[place] Syndrome, Migraine or Head Trauma CARDIAC: Negative Cardiac Disorders, Heart Murmur, Hypercholesterolemia, Congestive Heart Failure, Edema, Hypertension or Hypotension RESPIRATORY: Negative Chronic Obstructive Pulmonary Disease (COPD), Asthma, Bronchitis, Tuberculosis or Sleep Apnea GASTROINTESTINAL: Positive Gastrointestinal Disorders and Obesity; Negative Hepatitis, Gall Bladder Disease, Gastrointestinal Bleed, Hemorrhoids or Gastroesophageal Reflux Disease GENITOURINARY: Negative Genitourinary Disorders, Renal Disease or Kidney Stones REPRODUCTIVE: Positive Previous Pregnancies; Negative Endometriosis, Genital Herpes, Gonorrhea, Pelvic Inflammatory Disease or Syphilis MUSCULOSKELETAL: Positive Musculoskeletal Disorders and Scoliosis; Negative Arthritis, Carpal Tunnel Syndrome or Fractures ENT: Negative Head Trauma ENDOCRINE: Negative Endocrine Disorders, Diabetes Mellitus Type 1, Diabetes Mellitus Type 2, Hypothyroidism or Parathyroid Disease HEMATOLOGIC: Positive Blood Disorders and Anemia PSYCHO/SOCIAL: Negative Recreational Drug Use, Bipolar Disorder, Depression, Anxiety, Behavior Problems, Self-Mutilation, Attention Deficit Disorder, Attention Deficit Hyperactivity Disorder, Depression, Post Traumatic Stress Disorder or Eating Disorder OTHER HISTORY: Positive Hospitalization (D and C) and Blood Transfusions; Negative Autoimmune Disease, Down Syndrome, Developmental Delay, Shingles, Falls, Blood Transfusion Reaction, Anesthesia Reactions, Organ Transplant, Chemotherapy, Radiation Therapy, Hyperbaric Therapy, MRSA, VRSA, Vancomycin-Resistant Enterococci, Human Immunodeficiency Virus (HIV), Chicken Pox, Measles, Mumps, Rubella ([place] Measles), Pertussis, Clostridium Difficile or Cancer Family History FAMILY HISTORY: Positive Family Cardiac Disorders and Family Surgery; Negative Family Psychiatric Problems, Family Respiratory Disorders, Family Gastrointestinal Problems, Family Cancer or Family Anesthesia Reaction Surgical History SURGICAL: Negative Cardiac Surgery, Open Heart Surgery, Coronary Artery Bypass Graft, Valve Replacement, Vascular Surgery, Coronary Stent, Cardiac Catheterization, Pacemaker, Angiogram, Auto Implanted Cardiovert Defib, Carotid Endarterectomy, Endocrine Surgery, Thyroidectomy, Ear Surgery, Abdominal Surgery, Nephrectomy, Joint Replacement, Neurologic Surgery, Brain Shunt, Mastectomy, Lumpectomy, Hysterectomy, Tubal Ligation, Section, Vasectomy or Organ Transplant Social History SMOKING STATUS: Never smoker ED Exam General Limitations: Present no limitations General appearance: Present alert and in no apparent distress Head Head exam: Present atraumatic, normocephalic and normal inspection Eye Eye exam: Present normal appearance, PERRL and EOMI; Absent conjunctival injection ENT ENT exam: Present mucous membranes moist Expanded ENT Exam Teeth numbered:  1. Other (Small sore less than 1 cm) Neck Neck exam: Present normal inspection, full ROM and trachea midline Chest Chest inspection: Present normal inspection and symmetric chest wall rise Respiratory Respiratory exam: Present normal lung sounds bilaterally; Absent respiratory distress Cardiovascular Cardiovascular exam: Present regular rate, normal rhythm and normal heart sounds Abdominal Exam Abdominal exam: Present soft and normal bowel sounds Extremities Exam Extremities exam: Present normal inspection and full ROM Back Exam Back exam: Present normal inspection and full ROM Neurological Exam Neurological exam: Present alert, oriented X3 and CN II-XII intact Psychiatric Psychiatric exam: Present normal affect and normal mood Skin Skin exam: Present warm, dry, intact and normal color Course Quality Measures none Vital Signs Vital signs: Vital Signs Temperature 98.4 F 03/24/25 13:41 Pulse Rate 75 03/24/25 13:41 Respiratory Rate 18 03/24/25 13:41 Blood Pressure 116/74 03/24/25 13:41 Pulse Oximetry (%) 99 03/24/25 13:41 Oxygen Delivery Method Room Air 03/24/25 13:41 O2 saturation 99% room air within normal limits Dental / Oral MDM Narrative MDM Narrative:: 24-year-old female presents to the emergency department of complaints of left tongue lesion. Patient reports she noticed it about 1 week ago On exam patient has small sore to the left side of her tongue Explained to the patient should follow-up with ENT specialist for biopsy and further evaluation At this time patient has no difficulty breathing no difficulty swallowing no swelling Patient discharged home in no distress to follow-up with primary care doctor in the next 24 to 48 hours and for any worsening symptoms to return to the ER immediately Patient data External records reviewed:: [facility] previous records Clinical information provided by:: patient Social determinants that could affect healthcare access:: none Patient has the following chronic illnesses:: None How is presenting disease/condition affected by chronic disease/condition?: no chronic disease Evaluation data The following diagnostics were reviewed and interpreted by me:: other (specify) Lab and/or radiology exams considered but not ordered:: Considered not ordered Interpretation Summary: N/A Medications / Prescriptions Medications or Prescriptions considered but not ordered:: Given Medication administrations:: Given Consultations Consultation(s) initiated? (list below): No Diagnosis Dental Differential Diagnosis: other (Tongue sore) Most likely diagnosis given after review of the tests above:: Tongue sore Admission Indicated Admission indicated?: not indicated Admission Request Was there a request for admission?: No Disposition Plan Disposition Plan: Discharge Discharge Attestation Discharge Attestation: The patient and all family members were given an opportunity to ask questions and understood the discharge instructions. Discharge instructions specifically effects, indications for sooner follow up or return to the emergency department, and the expected course of current diagnosis. Patient condition: Stable Discharge Plan Plan Patient Disposition: HOME (Self Care) Discharge Disposition comment: Stable Prescriptions/Referrals Prescriptions/Med Rec: No Action No Known Home Medications Problem List Clinical Impression: Tongue abnormality Patient/Caregiver Discharge Instructions Additional Instructions: Please follow up with your primary care doctor in the next 24-48hrs for any worsening symptoms return here immediately Please request your doctor send you to a ENT specialist for further evaluation Print Language: Arabic Stand Alone Forms: Missy Award Info., Patient Portal Info Letter PA/SUPERVISOR [employer] ATTENDANT Supervising Physician PA/SUPERVISOR [employer] ATTENDANT Supervising Physician: Dr. [email or web address]
== END 2025-03-24 14:25 | disposition home or self-care (01) ==
LOC: SERX 13:56
PROVIDERS: Emergency Provider Nurse Practitioner Primary Care; PCP Family Medicine
DX: K14.8 Other diseases of tongue (principal)
CPT/HCPCS: 99281